=== PATIENT | female | born 1970 | race American Indian/Alaskan Native ===

== ENCOUNTER 2021-03-22 10:29 | Outpatient (CLI) | payer MEDICARE ==
--- NOTE | 2021-03-22 11:21 | XRay Report ---
XR knees standing AP Bilateral, XR knee 1-2V RT INDICATION / CLINICAL INFORMATION: PAIN. COMPARISON: None available. FINDINGS: Tricompartmental osteophyte formation. Joint spaces are preserved. Right joint effusion. No acute fra cture. Normal alignment. No destructive osseous lesion or suspicious periosteal reaction. Impression: 1. 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 Right knee joint effusion is prese nt. Signer Name: Elieser Mendez MD Signed: 03/22/2021 11:16 AM Workstation Name: [id number]
== END 2021-03-22 10:30 | disposition home or self-care (01) ==
LOC: XRAY 10:29
PROVIDERS: ATTEND Orthopaedic Surgery
DX: M17.0 Bilateral primary osteoarthritis of knee (principal); M25.762 Osteophyte, left knee; M25.761 Osteophyte, right knee; M25.461 Effusion, right knee
CPT/HCPCS: 73565